=== PATIENT | male | born 1985 | race Two or more races ===

== ENCOUNTER 2019-06-22 13:12 | Emergency (ER) | payer OTHER ==
[~2019-06-22] VITALS: Ht 180.3 cm; Wt 92.5 kg
[2019-06-22 17:26] VITALS: BP 126/83
== END 2019-06-22 17:28 | disposition home or self-care (01) ==
LOC: M ED 13:12
DX: S09.90XA Unspecified injury of head, initial encounter (principal); W01.0XXA Fall on same level from slipping, tripping and stumbling without subsequent striking against object, initial encounter; Y92.014 Private driveway to single-family (private) house as the place of occurrence of the external cause